=== PATIENT | male | born 1995 | race African-American/Black ===

== ENCOUNTER → 2020-11-08 | Outpatient (CLI) | payer OTHER ==
[~2020-11-08] MED LIST: MONT10TA49 PO
--- NOTE | 2020-11-08 13:28 | KCIC ---
3 views right hand 11/08/2020 12:30 PM Indication: Reason: RT HAND PAIN ULNA SIDE, JAMMED/DISLOCATED 5TH DIGIT 08/09/20 / Spl. Instructions: / History: Comparison: None Findings: There is no acute fracture or dislocation. Articular surfaces are uninterupted and smooth. Soft tissues are unremarkable. Impression: No evidence of acute osseous abnormality. Electronically signed by: Axel Thomas MD (11/08/2020 1:25 PM) [id number]
== END ==
LOC: KCIC 12:27
PROVIDERS: ATTEND Family Medicine
DX: M79.641 Pain in right hand (principal)
CPT/HCPCS: 73130